=== PATIENT | female | born 2000 | race Caucasian/White ===

== ENCOUNTER 2023-05-17 19:02 | Emergency (ER) | payer OTHER ==
[~2023-05-17] VITALS: Ht 157.5 cm; Wt 59.0 kg
[2023-05-17 20:44] VITALS: BP_SYST 100; PULSE 62; RESP 20; TEMP 98.3; O2SAT 100
[2023-05-17 21:00] VITALS: BP_SYST 100; PULSE 62; RESP 20; TEMP 98.3; O2SAT 100
== END 2023-05-17 23:59 | disposition home or self-care (01) ==
LOC: SED 19:02
DX: Z00.00 Encounter for general adult medical examination without abnormal findings (principal); N92.6 Irregular menstruation, unspecified; Z88.1 Allergy status to other antibiotic agents; Z79.899 Other long term (current) drug therapy
CPT/HCPCS: 36415; 84702; 99283